=== PATIENT | female | born 1955 | race Caucasian/White ===

== ENCOUNTER → 2022-09-20 13:26 | Outpatient (BNVA) | payer MEDICARE, MEDICAID, SELFPAY | PROVIDERS: PCP Internal Medicine; Visit Provider Nurse Practitioner Family | DX: M47.816 Spondylosis without myelopathy or radiculopathy, lumbar region (principal); M54.2 Cervicalgia; G89.4 Chronic pain syndrome; M62.838 Other muscle spasm | CPT/HCPCS: 99202 ==

== ENCOUNTER 2022-09-26 10:34 | Outpatient (REF) | payer MEDICARE, MEDICAID, SELFPAY ==
--- NOTE | ~2022-09-26 | XR_ITS ---
EXAMINATION: XR CERVICAL SPINE CLINICAL INFORMATION: Chronic pain syndrome COMPARISON: None available. TECHNIQUE: 3 views of the cervical spine were obtained. FINDINGS: Bone alignment is normal. No fracture or dislocation. Degenerative spondylosis and degenerative disc disease at C4-C5 C5-C6 and C6-C7. prevertebral soft tissues are normal. XR/XR cervical spine 3V IMPRESSION: Multilevel degenerative changes.
--- NOTE | ~2022-09-26 | XR_ITS ---
EXAMINATION: XR LUMBOSACRAL SPINE WITH OBLIQUES CLINICAL INFORMATION: Pain COMPARISON: None available. TECHNIQUE: 7 views of the spine including bilateral oblique and flexion and extension views FINDINGS: No fracture or dislocation. There is mild anterior subluxation of L4 with respect L5 measuring 3 mm flexion. Bone alignment is otherwise normal. Degenerative disc disease at L4-L5. Lower lumbar spine facet arthritis. No pars defect. XR/XR lumbar spine 6V w bending IMPRESSION: Degenerative disc disease at L4-L5 and lower lumbar spine facet arthritis. Mild 3 mm anterior subluxation of L4 with respect L5 on flexion.
== END 2022-09-26 10:35 | disposition home or self-care (01) ==
LOC: HO.XRAY 10:34
PROVIDERS: Visit Provider Nurse Practitioner Family
DX: G89.4 Chronic pain syndrome (principal); M47.816 Spondylosis without myelopathy or radiculopathy, lumbar region; M54.2 Cervicalgia
CPT/HCPCS: 72040; 72114

== ENCOUNTER 2022-12-23 08:42 | Outpatient (AMB) | payer OTHER, MEDICAID, SELFPAY ==
[2022-12-23 09:04] VITALS: BP 138/74; PULSE 79; RESP 12; TEMP 36.3; O2SAT 98; BMI 32.3
--- NOTE | 2022-12-23 09:04 | MHC.OFFWIV ---
Intake Vital Signs 12/23/22 09:04 Height 5 ft 4 in Weight 188 lb BMI 32.3 BP 138/74 Blood Pressure Location Lt brachial Position Sitting Respiration 12 Pulse 79 Pulse Source Pulse Oximeter Temp 97.4 F Temp Source Temporal Artery Scan Pulse Oximetry (%) 98 Oxygen Delivery Method Room Air Intake Visit Reasons: splinter, left finger Intake Note: Patient states that splnter has been i finger since last Friday. Patient states that she attempted to take it out and puss came out and now patient is unsure if splinter is still in there. Patient Tobacco Use Status: Former Tobacco user Crime Prevention Worker Required: Yes Crime Prevention Worker Name: Linette (daughter) Accompanied by: Daughter Allergies iopamidol [From [id number]] Allergy (Mild, Verified 12/23/22 09:09) HIVE penicillin V Allergy (Unknown, Verified 12/23/22 09:09) Rash Do you need a note to return to daycare/school/sports/work: No HPI splinter, left finger HPI Details 67 y/o female presents with complaints of a splinter on her L finger. She reports someone had already taken out the splinter. She does not remember if she had a tetanus shot the last few years. [facility] Medical History Anxiety and depression Back pain Bilateral hydronephrosis Bilateral sacroiliitis Chronic back pain Constipation Fatty liver Gastritis Hostility Hyperglycemia Hypertension Lumbar disc herniation Memory problem Neck pain Prediabetes Tachycardia Social History Patient Tobacco Use Status: Former Tobacco user Review of Systems Const Denies chills, Denies fatigue, Denies fever(s), Denies headache(s) and Denies weakness ENT Denies dizziness and Denies headache(s) Card Denies dyspnea Resp Denies cough, Denies dyspnea, Denies wheezing and Denies other (shortness of breath) Musc Denies numbness and Denies tingling Neuro Denies dizziness, Denies headache(s), Denies numbness, Denies tingling and Denies weakness Psych Denies anxiety and Denies depression Endo Denies fatigue Aller/Immun Denies wheezing Physical Exam Vital Signs: Last Vital Signs Temp 97.4 F 12/23/22 09:04 Pulse 79 12/23/22 09:04 Resp 12 12/23/22 09:04 BP 138/74 12/23/22 09:04 Pulse Ox 98 12/23/22 09:04 Oxygen Delivery Method Room Air 12/23/22 09:04 BMI result Body Mass Index 32.3 Const General: well developed; No acute distress Nutritional Appearance: well nourished Orientation/consciousness: patient oriented x3 HEENT Head: Yes normocephalic and Yes atraumatic Eyes General: appearance normal, both eyes and all related structures Pupils: Equal, round and reactive pupils present EOM: EOMs intact bilaterally Resp Effort & Inspection: normal respiratory effort Skin Other: Wound at base of her L 3rd finger with a little bit of redness. Neuro General: patient oriented x3 and gait normal Cranial nerves: Yes Equal, round and reactive pupils present Psych Affect: normal affect Assessment & Plan Assessment & Plan (1) Wound of skin: Code(s): T14.8XXA - Other injury of unspecified body region, initial encounter Plan: Wound at base of left 3rd finger. No foreign body observed in wound Patient is diabetic however-will give her a course of cephalexin. Patient does not know when her last tetanus shot is so will give her this is well She can perform warm saltwater soaks twice a day until healed. Caution with temperature as she has diabetes. Advised her to watch for increasing redness swelling streaking or drainage - call or return to office for these Orders: Orders TDaP Immunization Today T14.8XXA - Other injury of unspecified body region, initial encounter, Z23 - Encounter for immunization Medications: New Boostrix Tdap (diphth,pertus(acell),tetanus) 0.5 mL IM ONCE 0.5 mL 0RF NS T14.8XXA - Other injury of unspecified body region, initial encounter, Z23 - Encounter for immunization Coding Level of Care Code Est Pt Level 3 (83035) Diagnoses Wound of skin T14.8XXA
== END 2022-12-23 10:08 | disposition home or self-care (01) ==
PROVIDERS: PCP Internal Medicine; Visit Provider Family Medicine
DX: S60.455A Superficial foreign body of left ring finger, initial encounter (principal); L03.012 Cellulitis of left finger
CPT/HCPCS: 90471; 90715; 99213

== ENCOUNTER 2023-09-30 14:17 | Outpatient (AMB) | payer MEDICAID, SELFPAY ==
--- NOTE | 2023-09-30 14:19 | A.OFFVIS_ITS ---
Vital Signs 3 09/30/23 14:37 Height 5 ft 4 in Weight 186 lb 4 oz BMI 32.0 BP 136/86 Blood Pressure Location Lt brachial Position Sitting Respiration 14 Pulse 96 Pulse Source Pulse Oximeter Pulse Oximetry (%) 96 Oxygen Delivery Method Room Air Intake Visit Reasons: X-Ray Results Discussion Intake Note: Pain 07/05 Life Assurance Representative Required: Yes Life Assurance Representative Language: Credit Clerk Name: Daughter Accompanied by: Daughter Allergies iopamidol [From Isovue-[id number]] Allergy (Mild, Verified 09/30/23 14:40) HIVE penicillin V Allergy (Unknown, Verified 09/30/23 14:40) Rash HPI Comments Details: Patient presents today to discuss recent cervical and lumbar spine x-ray results that were completed in 2022. She was initially seen in Spring 2022 and was recommended to start with physical therapy. Patient reports she has never received appointment for PT and continues to endorse neck pain with extension and lower back pain with prolonged walking and forward flexion. She is interested to start PT. Patient is hesitant towards interventional treatments as previous neck and back injections were not effective. Patient has been taking Tylenol and muscle relaxant for her pain with mild relief. She avoids NSAIDs due to recent gastritis. Most recent A1C 5.3. Denies any recent cough, cold, infection, fever, weakness, numbness, tingling, burning, any significant changes in her medical history, medications or recent hospitalizations. PRIOR: Patient is a 67 years old Serbian speaking female presents today for initial evaluation of worsening chronic neck and back pain. She reports history of a falling from hammock on cemented floor about 5 years ago. Patient reports she has been followed by [facility] office and received multiple cervical and lumbar injections which provided her on average 2-7 days of pain relief. Her pain is worse with movements of upper and lower spine with extension, during positions changes and worse at nighttime. Her back is mostly axial without radiation to lower extremities, weakness, numbness or tingling. Patient reports she did not make any gains regarding pain or function with physical therapy, conservative measures or spine injections. Patient is hesitant towards interventional treatments and was hopeful to pursue medical management through our office. I have informed this patient that we do not offer opioid prescribing at this time. I will submit request to her [facility] pain management provider for all previous injections and procedures. We briefly discussed longer term pain relief with neuromodulation and RFA procedures. Patient denies any fever, weight loss, abdominal or groin pain, weakness, bladder or bowel incontinence or saddle anesthesia. Location Whole back neck to lower back Duration Chronic for many years, worse since fall in 2018 Characteristics of symptom or complaint Aching, shooting, spasming, stabbing, sharp, squeezing, tiring Aggravating or associated factors Movements, changing positions, nighttime, prolonged sitting Relieving factors Ibuprofen, Tylenol, lidocaine patches Treatment PT in 2021, cervical and lumbar injections ON LICENSE OF [facility] Medical History Hyperglycemia Constipation Hostility Tachycardia Neck pain Lumbar disc herniation Gastritis Fatty liver Bilateral hydronephrosis Bilateral sacroiliitis Prediabetes Hypertension Chronic back pain Back pain Anxiety and depression Memory problem Social History Patient Tobacco Use Status: Former Tobacco user Review of Systems Const All systems reviewed & are unremarkable except as noted in HPI and below Physical Exam Vital Signs: Last Vital Signs Pulse 96 09/30/23 14:37 Resp 14 09/30/23 14:37 BP 136/86 09/30/23 14:37 Pulse Ox 96 09/30/23 14:37 Oxygen Delivery Method Room Air 09/30/23 14:37 BMI result Body Mass Index 32.0 General: Appears afebrile. Alert and oriented. Mood and affect appropriate. Follows and participates in conversation appropriately. Respiratory effort is unlabored. No cough. No nasal discharge. Able to transition from sit to stand unassisted. Ambulates with bilaterally normal heel strike and toe off. Neck Neck: Yes no lymphadenopathy, Yes supple, No anterior neck swelling, No torticollis, No tracheal deviation, Yes no JVD and Yes prominent dorsocervical fat pad Back/Spine/Pelvis Other: Limited lumbar ROM due to mild pain. No limping. Can flex forward to 70-80 degrees and extend to 5-10 degrees before experiencing lumbar pain. Increased pain with extension, forward flexion and facet loading bilaterally. Demonstrates 5/5 strength of quadriceps bilaterally as well as flexion/dorsiflexion of bilateral feet against resistance. 2+ pedal pulses bilaterally. Straight leg rise with dorsiflexion negative bilaterally. +1 patellar and achilles reflexes bilaterally. Polly sign and Bienvenido?s tests are negative bilaterally. No groin pain with I/E hip rotations. Valsalva maneuver negative. Back: back tenderness Cervical Spine: normal cervical lordosis, cervical muscular tenderness, pain with cervical ROM, No Cervical spine scars present, cervical spasm, No Cervical spine tenderness and No step off deformity Thoracic/Lumbar Spine: thoracic and lumbar spine normal to inspection, Lasegue's sign negative, straight leg raise negative bilaterally, pain with thoraco-lumbar ROM, paraspinal muscle tenderness, thoraco-lumbar ROM limited, thoracic spinal tenderness and lumbar spinal tenderness at L4 and at L5 Pelvis: no buttock tenderness Sacroiliac joints: bilaterally nontender Results Reviewed Results Reviewed: XR LUMBOSACRAL SPINE WITH OBLIQUES 09/26/22 FINDINGS: No fracture or dislocation. There is mild anterior subluxation of L4 with respect L5 measuring 3 mm flexion. Bone alignment is otherwise normal. Degenerative disc disease at L4-L5. Lower lumbar spine facet arthritis. No pars defect. IMPRESSION: Degenerative disc disease at L4-L5 and lower lumbar spine facet arthritis. Mild 3 mm anterior subluxation of L4 with respect L5 on flexion. XR CERVICAL SPINE 09/26/22 FINDINGS: Bone alignment is normal. No fracture or dislocation. Degenerative spondylosis and degenerative disc disease at C4-C5 C5-C6 and C6-C7. prevertebral soft tissues are normal. IMPRESSION: Multilevel degenerative changes. Assessment & Plan Assessment & Plan (1) Lumbar spondylosis: Code(s): M47.816 - Spondylosis without myelopathy or radiculopathy, lumbar region Category: Medical (2) Chronic pain syndrome: Code(s): G89.4 - Chronic pain syndrome Category: Medical (3) Muscle spasm: Code(s): M62.838 - Other muscle spasm Category: Medical (4) Lumbar degenerative disc disease: Code(s): M51.36 - Other intervertebral disc degeneration, lumbar region Category: Medical (5) Cervical spondylosis: Code(s): M47.812 - Spondylosis without myelopathy or radiculopathy, cervical region Category: Medical (6) Neck pain: Code(s): M54.2 - Cervicalgia Category: Medical Plan Lumbar and cervical spine xrays from 09/2022 reviewed with patient and family again today, previously these results were called to patient on 10/09/22. We will update spine imaging to follow up on previous findings, including cervical and lumbar DDD and anterior subluxation of L4 with respect L5 on flexion. We reviewed diagnostic vs therapeutic injections, neuromodulation with SPRINT device, RFA, BVN ablation procedures. Patient is hesitant towards interventional treatments at this time. Her pain is minimal today, rated at 2/10. She is interested to start formal PT and establish HEP. Script to PT at [facility] location and contact information provided to patient and family. Medical release sent to PCP office for most recent lab work prior to considering medication for symptomatic pain relief. All questions and concerns have been answered and patient agreed with the plan. Follow up for xray results/records review and sooner if needed. Orders: Orders 2 PT Evaluation and Treatment Today G89.4 - Chronic pain syndrome, M47.812 - Spondylosis without myelopathy or radiculopathy, cervical region, M47.816 - Spondylosis without myelopathy or radiculopathy, lumbar region, M51.36 - Other intervertebral disc degeneration, lumbar region, M62.838 - Other muscle spasm XR lumbar spine 4V min Today M47.816 - Spondylosis without myelopathy or radiculopathy, lumbar region, M51.36 - Other intervertebral disc degeneration, lumbar region XR cervical spine 3V Today M47.812 - Spondylosis without myelopathy or radiculopathy, cervical region, M62.838 - Other muscle spasm Medications: Discontinued 2 methocarbamol Discontinued Reason: Patient Completed Course 750 mg PO Q8H 30 days 90 tabs 0RF muscle spasms G89.4 - Chronic pain syndrome, M62.838 - Other muscle spasm Coding Level of Care Code Est Pt Level 4 (98354) Diagnoses Lumbar spondylosis M47.816 Chronic pain syndrome G89.4 Muscle spasm M62.838 Lumbar degenerative disc disease M51.36 Cervical spondylosis M47.812 Neck pain M54.2
[2023-09-30 14:37] VITALS: BP 136/86; PULSE 96; RESP 14; O2SAT 96; BMI 32.0
== END 2023-09-30 14:53 | disposition home or self-care (01) ==
PROVIDERS: PCP Internal Medicine; Visit Provider Nurse Practitioner Family
DX: M47.816 Spondylosis without myelopathy or radiculopathy, lumbar region (principal); G89.4 Chronic pain syndrome; M62.838 Other muscle spasm; M51.36 Other intervertebral disc degeneration, lumbar region; M47.812 Spondylosis without myelopathy or radiculopathy, cervical region; M54.2 Cervicalgia
CPT/HCPCS: 99214

== ENCOUNTER → 2023-09-30 14:17 | Outpatient (BNVA) | payer MEDICAID, SELFPAY | PROVIDERS: PCP Internal Medicine; Visit Provider Nurse Practitioner Family | DX: G89.4 Chronic pain syndrome (principal); M47.816 Spondylosis without myelopathy or radiculopathy, lumbar region; M62.838 Other muscle spasm; M51.36 Other intervertebral disc degeneration, lumbar region; M47.812 Spondylosis without myelopathy or radiculopathy, cervical region; M54.2 Cervicalgia | CPT/HCPCS: 99212 ==

== ENCOUNTER 2023-10-06 09:21 | Outpatient (REF) | payer MEDICARE, OTHER, SELFPAY ==
--- NOTE | ~2023-10-06 | XR_ITS ---
EXAMINATION: XR CERVICAL SPINE CLINICAL INFORMATION: Cervical spondylosis without myelopathy or radiculopathy COMPARISON: 09/26/2022 TECHNIQUE: AP, lateral and open-mouth views. FINDINGS: There is limited evaluation of cervical spine due to highly positioned shoulders. There is straightening of cervical lordosis with narrowing of C4-C5, C5-C6 and C6-C7 intervertebral disc spaces. There is uncovertebral osteophytosis. Odontoid view revealed no asymmetry. Soft tissues are unremarkable XR/XR cervical spine 3V IMPRESSION: Multilevel degenerative changes in cervical spine.
--- NOTE | ~2023-10-06 | XR_ITS ---
EXAMINATION: XR LUMBOSACRAL SPINE WITH OBLIQUES CLINICAL INFORMATION: Pain in lumbar region mass status post fall 5 years ago COMPARISON: 09/26/2022 TECHNIQUE: AP, lateral, oblique views and lateral coned view of lower lumbar spine. FINDINGS: There is loss of lumbar lordosis with narrowing cough L4-L5 intervertebral disc space and mild facet arthropathy. There is no spondylolysis or listhesis. Pedicles are preserved. Sacroiliac joints are unremarkable. Soft tissues are normal. XR/XR lumbar spine 4V min IMPRESSION: Mild degenerative changes and straightening of lumbar lordosis
== END 2023-10-06 09:22 | disposition home or self-care (01) ==
LOC: HO.XRAY 09:21
PROVIDERS: PCP Internal Medicine; Visit Provider Nurse Practitioner Family
DX: M51.36 Other intervertebral disc degeneration, lumbar region (principal); M47.816 Spondylosis without myelopathy or radiculopathy, lumbar region; M47.812 Spondylosis without myelopathy or radiculopathy, cervical region; M62.838 Other muscle spasm
CPT/HCPCS: 72040; 72110

== ENCOUNTER 2023-10-23 14:46 | Outpatient (AMB) | payer MEDICARE, MEDICAID, SELFPAY ==
--- NOTE | 2023-10-23 14:49 | A.OFFVIS_ITS ---
Vital Signs 10/23/23 14:53 Height 5 ft 4 in Weight 180 lb BMI 30.9 BP 143/65 H Blood Pressure Location Lt brachial Position Sitting Pulse 68 Pulse Source Pulse Oximeter Pulse Oximetry (%) 98 Oxygen Delivery Method Room Air Intake Visit Reasons: X-RAY FOLLOW UP Intake Note: Pain today 3/10 while sitting. 7/10 with movement Nutrition Services Aide Required: Yes Nutrition Services Aide Language: Training And Development Director Name: Oleg #[id number] Accompanied by: self Allergies iopamidol [From Isovue-[email or web address]] Allergy (Mild, Verified 10/23/23 14:52) HIVE penicillin V Allergy (Unknown, Verified 10/23/23 14:52) Rash HPI Comments Details: Patient presents today to discuss recent cervical and lumbar x-ray results. Denies any recent cough, cold, infection, fever, any significant changes in her medical history, medications or recent hospitalizations. PRIOR: Patient presents today to discuss recent cervical and lumbar spine x-ray results that were completed in 2022. She was initially seen in Spring 2022 and was recommended to start with physical therapy. Patient reports she has never received appointment for PT and continues to endorse neck pain with extension and lower back pain with prolonged walking and forward flexion. She is interested to start PT. Patient is hesitant towards interventional treatments as previous neck and back injections were not effective. Patient has been taking Tylenol and muscle relaxant for her pain with mild relief. She avoids NSAIDs due to recent gastritis. Most recent A1C 5.3. Denies any recent cough, cold, infection, fever, weakness, numbness, tingling, burning, any significant changes in her medical history, medications or recent hospitalizations. PRIOR: Patient is a 67 years old Romanian speaking female presents today for initial evaluation of worsening chronic neck and back pain. She reports history of a falling from hammock on cemented floor about 5 years ago. Patient reports she has been followed by [facility] office and received multiple cervical and lumbar injections which provided her on average 2-7 days of pain relief. Her pain is worse with movements of upper and lower spine with extension, during positions changes and worse at nighttime. Her back is mostly axial without radiation to lower extremities, weakness, numbness or tingling. Patient reports she did not make any gains regarding pain or function with physical therapy, conservative measures or spine injections. Patient is hesitant towards interventional treatments and was hopeful to pursue medical management through our office. I have informed this patient that we do not offer opioid prescribing at this time. I will submit request to her [facility] pain management provider for all previous injections and procedures. We briefly discussed longer term pain relief with neuromodulation and RFA procedures. Patient denies any fever, weight loss, abdominal or groin pain, weakness, bladder or bowel incontinence or saddle anesthesia. Location Whole back neck to lower back Duration Chronic for many years, worse since fall in 2018 Characteristics of symptom or complaint Aching, shooting, spasming, stabbing, sharp, squeezing, tiring Aggravating or associated factors Movements, changing positions, nighttime, prolonged sitting Relieving factors Ibuprofen, Tylenol, lidocaine patches Treatment PT in 2021, cervical and lumbar injections PFSH Medical History Hyperglycemia Constipation Hostility Tachycardia Neck pain Lumbar disc herniation Gastritis Fatty liver Bilateral hydronephrosis Bilateral sacroiliitis Prediabetes Hypertension Chronic back pain Back pain Anxiety and depression Memory problem Social History Patient Tobacco Use Status: Former Tobacco user Review of Systems Const All systems reviewed & are unremarkable except as noted in HPI and below Physical Exam General: Appears afebrile. Alert and oriented. Mood and affect appropriate. Follows and participates in conversation appropriately. Respiratory effort is unlabored. No cough. No nasal discharge. Able to transition from sit to stand unassisted. Ambulates with bilaterally normal heel strike and toe off. Neck Neck: Yes full ROM, Yes no lymphadenopathy, Yes supple, No anterior neck swelling, No torticollis, No tracheal deviation, Yes no JVD and Yes prominent dorsocervical fat pad Back/Spine/Pelvis Other: Limited lumbar ROM due to mild pain. Increased pain with extension, forward flexion and facet loading bilaterally. Demonstrates 5/5 strength of quadriceps bilaterally as well as flexion/dorsiflexion of bilateral feet against resistance. 2+ pedal pulses bilaterally. Straight leg rise with dorsiflexion negative bilaterally. +1 patellar and achilles reflexes bilaterally. Polly sign and Bienvenido?s tests are negative bilaterally. No groin pain with I/E hip rotations. Valsalva maneuver negative. Cervical Spine: normal cervical lordosis, cervical ROM normal, cervical muscular tenderness, pain with cervical ROM, No Cervical spine scars present, cervical spasm, No Cervical spine tenderness and No step off deformity Thoracic/Lumbar Spine: thoracic and lumbar spine normal to inspection, No Thoracic/lumbar spine scar(s), Lasegue's sign negative, straight leg raise negative bilaterally, pain with thoraco-lumbar ROM, paraspinal muscle tenderness, thoraco-lumbar ROM limited, thoracic spinal tenderness and lumbar spinal tenderness at L4 and at L5 Pelvis: no buttock tenderness Sacroiliac joints: bilaterally nontender Results Reviewed Results Reviewed: XR LUMBOSACRAL SPINE WITH OBLIQUES 10/06/23 CLINICAL INFORMATION: Pain in lumbar region mass status post fall 5 years ago COMPARISON: 09/26/2022 FINDINGS: There is loss of lumbar lordosis with narrowing cough L4-L5 intervertebral disc space and mild facet arthropathy. There is no spondylolysis or listhesis. Pedicles are preserved. Sacroiliac joints are unremarkable. Soft tissues are normal. IMPRESSION: Mild degenerative changes and straightening of lumbar lordosis XR CERVICAL SPINE 10/06/23 CLINICAL INFORMATION: Cervical spondylosis without myelopathy or radiculopathy COMPARISON: 09/26/2022 FINDINGS: There is limited evaluation of cervical spine due to highly positioned shoulders. There is straightening of cervical lordosis with narrowing of C4-C5, C5-C6 and C6-C7 intervertebral disc spaces. There is uncovertebral osteophytosis. Odontoid view revealed no asymmetry. Soft tissues are unremarkable IMPRESSION: Multilevel degenerative changes in cervical spine. Assessment & Plan Assessment & Plan (1) Lumbar spondylosis: Code(s): M47.816 - Spondylosis without myelopathy or radiculopathy, lumbar region Category: Medical (2) Muscle spasm: Code(s): M62.838 - Other muscle spasm Category: Medical (3) Cervical spondylosis: Code(s): M47.812 - Spondylosis without myelopathy or radiculopathy, cervical region Category: Medical (4) Chronic pain syndrome: Code(s): G89.4 - Chronic pain syndrome Category: Medical (5) Lumbar degenerative disc disease: Code(s): M51.36 - Other intervertebral disc degeneration, lumbar region Category: Medical (6) Neck pain: Code(s): M54.2 - Cervicalgia Category: Medical Plan Lumbar and cervical spine xrays were reviewed with patient today with assistance of transportation escort. Patient was recommended to start physical therapy and establish home exercise program. Patient reports she has not received call from PT office yet, we provided patient with PT contact information again. Discussed interventional treatments for axial cervical and low back pain, including diagnostic vs therapeutic injections, Sprint PNS trial, RFA procedures. Script provided for tizanidine for neck and back muscle spasms. Side effects and precautions discussed with patient. All questions and concerns have been answered and patient agreed with the plan. Follow up after PT and sooner as needed. Medications: New tizanidine 2 mg PO TID 30 days PRN 90 tabs 0RF muscle spasticity M47.812 - Spondylosis without myelopathy or radiculopathy, cervical region, M47.816 - Spondylosis without myelopathy or radiculopathy, lumbar region, M62.838 - Other muscle spasm Coding Level of Care Code Est Pt Level 4 (91319) Diagnoses Lumbar spondylosis M47.816 Muscle spasm M62.838 Cervical spondylosis M47.812 Chronic pain syndrome G89.4 Lumbar degenerative disc disease M51.36 Neck pain M54.2
[2023-10-23 14:53] VITALS: BP 143/65; PULSE 68; O2SAT 98; BMI 30.9
== END 2023-10-23 15:21 | disposition home or self-care (01) ==
PROVIDERS: PCP Internal Medicine; Visit Provider Nurse Practitioner Family
DX: M47.816 Spondylosis without myelopathy or radiculopathy, lumbar region (principal); M62.838 Other muscle spasm; M47.812 Spondylosis without myelopathy or radiculopathy, cervical region; G89.4 Chronic pain syndrome; M51.36 Other intervertebral disc degeneration, lumbar region; M54.2 Cervicalgia
CPT/HCPCS: 99214

== ENCOUNTER → 2023-10-23 14:46 | Outpatient (BNVA) | payer MEDICARE, MEDICAID, SELFPAY | PROVIDERS: PCP Internal Medicine; Visit Provider Nurse Practitioner Family | DX: M47.816 Spondylosis without myelopathy or radiculopathy, lumbar region (principal); M62.838 Other muscle spasm; M47.812 Spondylosis without myelopathy or radiculopathy, cervical region; M51.36 Other intervertebral disc degeneration, lumbar region; M54.2 Cervicalgia; G89.4 Chronic pain syndrome | CPT/HCPCS: 99212 ==

== ENCOUNTER 2025-02-08 14:25 | Outpatient (AMB) | payer MEDICARE, MEDICAID, SELFPAY ==
--- NOTE | 2025-02-08 14:29 | MHC.PC.OV ---
Vital Signs 02/08/25 14:32 BP 116/80 Blood Pressure Location Lt brachial Position Sitting Respiration 14 Pulse 82 Pulse Source Pulse Oximeter Temp 98.2 F Temp Source Oral Pulse Oximetry (%) 95 Oxygen Delivery Method Room Air Intake Visit Reasons: jarred from eliza Allergies iopamidol (From [id number]) Allergy (Mild, Verified 10/23/23 14:52) HIVE penicillin V Allergy (Unknown, Verified 10/23/23 14:52) Rash Tobacco use date assessed: 02/08/25 Fall risk assessment: No Falls in past year Last assessed Fall Risk: 02/08/25 Dental Screening Dental Screen Date: 02/08/25 Did you have a dental visit in the last 12 months?: No Did you have a dental problem in the last 6 months where you did not have access to dental care?: No Was dental information given to patient?: Patient declined (no teeth) HPI HPI Comments History of Present Illness Details The patient is a 69 year old Lao speaking female with past medical history of neck, lumbar pain, hypertension, prediabetes, anxiety, memory issues, MARVIN, insomnia presenting to [facility] care. Transfer from [facility]-Dr Hood Last visit telehealth 09/07/2024. CV: On atenolol, toprol 12.5mg daily GI: On PPI MSK: Chronic neck and low back pain. Previously seeing pain management but pain was no less with treatments so she has not been following BH: on lorazepam 1mg bedtime as needed, only as needed Colonoscopy: [facility]-within 10 years Mammo: Declines further mammogram ROS CONSTITUTIONAL: Denies weight loss, fever and chills. HEENT: Denies changes in vision and hearing. RESPIRATORY: Denies SOB and cough. CV: Denies palpitations and CP GI: Denies abdominal pain, nausea, vomiting and diarrhea. : Denies dysuria and urinary frequency. MSK: Denies new myalgia and joint pain. SKIN: Denies rash and pruritus. NEUROLOGICAL: Denies headache PSYCHIATRIC: Denies recent changes in mood. PHYSICAL EXAM: GENERAL: Alert and oriented x 3. NAD EYES: EOMI. Anicteric. HENT: Moist mucous membranes. No scleral icterus. No cervical lymphadenopathy. LUNGS: Clear to auscultation bilaterally. CARDIOVASCULAR: Regular rate and rhythm. No murmur. No JVD. ABDOMEN: Soft, non-tender +bs EXTREMITIES: No edema. Non-tender. SKIN: No rashes or lesions. Warm. NEUROLOGIC: No focal neurological deficits. CN II-XII grossly intact PSYCHIATRIC: Cooperative. Appropriate mood and affect FOR[facility]LY [facility], [facility] Medical History Hyperglycemia Constipation Hostility Tachycardia Neck pain Lumbar disc herniation Gastritis Fatty liver Bilateral hydronephrosis Bilateral sacroiliitis Prediabetes Hypertension Chronic back pain Back pain Anxiety and depression Memory problem Social History Housing: House Patient Tobacco Use Status: Former Tobacco user (quit 25 years ago) Cigarette Packs Per Day: 0.25 Years Smoked: 10 e-Cigarette/Vaping Use: Never Used Second Hand Smoke Exposure: No service: No Current occupational status: retired Cognitive needs: No Hearing needs: No Vision needs: No Questionnaire PHQ-9 Over the last 2 weeks, how often have you been bothered by any of the following problems? 1. Little interest or pleasure in doing things: not at all 2. Feeling down, depressed, or hopeless: not at all 3. Trouble falling or staying asleep, or sleeping too much: several days 4. Feeling tired or having little energy: several days 5. Poor appetite or overeating: not at all 6. Feeling bad about yourself - or that you are a failure or have let yourself or your family down: not at all 7. Trouble concentrating on things, such as reading the newspaper or watching television: not at all 8. Moving or speaking so slowly that other people could have noticed. Or the opposite - being so fidgety or restless that you have been moving around a lot more than usual: not at all 9. Thoughts that you would be better off or of hurting yourself in some way: not at all Total score: 2 Depression Screening Interpretation: Negative Depression Screening Done: Yes 67362 - PHQ-9 Billing: Yes Source: Developed by Drs. Jaime Hitchcock, Susu Lim, Mukund Wagoner and colleagues, with an educational catherine from [employer]. Thrive Questionnaire I am a: Patient What is your living situation today?: I have a steady place to live Within the past 12 months, did the food you bought not last and you didn't have the money to get more?: Never true Within the past 12 months, did you worry whether your food would run out before you got money to buy more?: Never true Do you have trouble paying for medicines?: No Do you have trouble getting transportation to medical appointments?: No Do you have trouble paying your heating and electricity bill?: No Do you have trouble taking care of your child, family member or friend?: No Do you have trouble with day-to-day activities such as bathing, preparing meals, shopping, managing finances, etc.?: No Are you currently unemployed and looking for a job?: No Are you interested in more education?: No Please select the resources that you would like help with: None Currently or been in a relationship where the following occur: No concerns reported THRIVE Score: 0 AUDIT C Alcohol Use Questionnaire (AUDIT-C) 1. How often do you have a drink containing alcohol?: Never Total Score: 0 KARIE-7 AMB Questionnaire KARIE-7 Feeling nervous, anxious, or on edge: 0 = Not at all Not being able to stop or control worryin = Not at all Worrying too much about different things: 0 = Not at all Trouble relaxin = Not at all Being so restless that it is hard to sit still: 0 = Not at all Becoming easily annoyed or irritable: 0 = Not at all Feeling afraid as if something awful might happen: 0 = Not at all Total KARIE-7 score (0-4 normal; 5-9 mild; 10-14 moderate; 15-21 severe): 0 Source: Developed by Drs. Jaime Hitchcock, Susu Lim, Mukund Wagoner and colleagues, with an educational catherine from [employer]. Physical exam (Primary Care) Vital Signs: Last Vital Signs Temp 98.2 F 02/08/25 14:32 Pulse 82 02/08/25 14:32 Resp 14 02/08/25 14:32 BP 116/80 02/08/25 14:32 Pulse Ox 95 02/08/25 14:32 Oxygen Delivery Method Room Air 02/08/25 14:32 Tobacco/Smoking Status: Tobacco use Status Tobacco use date assessed 02/08/25 02/08/25 14:36 Patient Tobacco Use Status Former Tobacco user (quit 02/08/25 14:36 years ago) e-Cigarette/Vaping Use Never Used 02/08/25 14:36 PHQ-9: PHQ-9 Score PHQ-9: Total score 2 02/08/25 14:52 Depression Screening Interpretation: Negative Currently or been in a relationship where the following occur: No concerns reported Coding Level of Care Code New Pt Level 4 (69964) Complex EM visit Add On G2211 Diagnoses Prediabetes R73.03 Primary hypertension I10 Hypertension type: primary hypertension Anxiety and depression F41.9; F32.A Degeneration of intervertebral disc of lumbar region, unspecified whether pain present M51.369 Disc-related pain type: unspecified whether pain present Additional Codes PHQ-9 - 34808 - PHQ-9 Billing: Yes ([id number]) Assessment & Plan Assessment & Plan (1) Prediabetes: Code(s): R73.03 - Prediabetes Category: Medical (2) Hypertension: Code(s): I10 - Essential (primary) hypertension Category: Medical Qualifiers: Hypertension type: primary hypertension Qualified Code(s): I10 - Essential (primary) hypertension (3) Anxiety and depression: Code(s): F41.9 - Anxiety disorder, unspecified; F32.A - Depression, unspecified Category: Medical (4) Lumbar degenerative disc disease: Code(s): M51.36 - Other intervertebral disc degeneration, lumbar region Category: Medical Qualifiers: Disc-related pain type: unspecified whether pain present Qualified Code(s): M51.369 - Other intervertebral disc degeneration, lumbar region without mention of lumbar back pain or lower extremity pain Plan 69 year old to establish care past medical, surgical, social reviewed HTN-well controlled Prediabetes-check a1c. Anxiety well controlled on prn lorazepam Declines mammo. reports colonoscopy utd Orders: Orders Complete Blood Count Auto Diff Today F32.A - Depression, unspecified, F41.9 - Anxiety disorder, unspecified, I10 - Essential (primary) hypertension, M51.36 - Other intervertebral disc degeneration, lumbar region, R73.03 - Prediabetes Hemoglobin A1c Today F32.A - Depression, unspecified, F41.9 - Anxiety disorder, unspecified, I10 - Essential (primary) hypertension, M51.36 - Other intervertebral disc degeneration, lumbar region, R73.03 - Prediabetes TSH reflex Free T4 Today F32.A - Depression, unspecified, F41.9 - Anxiety disorder, unspecified, I10 - Essential (primary) hypertension, M51.36 - Other intervertebral disc degeneration, lumbar region, R73.03 - Prediabetes Comprehensive Met. Panel Today F32.A - Depression, unspecified, F41.9 - Anxiety disorder, unspecified, I10 - Essential (primary) hypertension, M51.36 - Other intervertebral disc degeneration, lumbar region, R73.03 - Prediabetes Lipid Panel Today F32.A - Depression, unspecified, F41.9 - Anxiety disorder, unspecified, I10 - Essential (primary) hypertension, M51.36 - Other intervertebral disc degeneration, lumbar region, R73.03 - Prediabetes
[2025-02-08 14:32] VITALS: BP 116/80; PULSE 82; RESP 14; TEMP 36.8; O2SAT 95
== END 2025-02-08 15:03 | disposition home or self-care (01) ==
LOC: HO.HMCFM 14:26
PROVIDERS: PCP Internal Medicine; Visit Provider Internal Medicine
DX: R73.03 Prediabetes (principal); I10 Essential (primary) hypertension; F41.9 Anxiety disorder, unspecified; F32.A Depression, unspecified; M51.369 Other intervertebral disc degeneration, lumbar region without mention of lumbar back pain or lower extremity pain

== ENCOUNTER → 2025-02-08 14:25 | Outpatient (BNVA) | payer MEDICARE, MEDICAID, SELFPAY | PROVIDERS: PCP Internal Medicine; Visit Provider Internal Medicine | DX: Z76.89 Persons encountering health services in other specified circumstances (principal); R73.03 Prediabetes; I10 Essential (primary) hypertension; F41.9 Anxiety disorder, unspecified; F32.A Depression, unspecified; M51.369 Other intervertebral disc degeneration, lumbar region without mention of lumbar back pain or lower extremity pain; Z79.899 Other long term (current) drug therapy; Z13.31 Encounter for screening for depression | CPT/HCPCS: 96127; 99202 ==

== ENCOUNTER 2025-02-16 09:10 | Outpatient (REF) | payer MEDICARE, MEDICAID, SELFPAY ==
[2025-02-16 11:50] LABS: MANUAL DIFF FLAG NO
[2025-02-16 12:07] LABS: Hematocrit 40.6 % (37.0-47.0); Hemoglobin 13.5 g/dl (12.0-16.0); Imm Gran Abs Auto 0.01 X10*3/uL (0.00-0.03); Imm Gran Pct Auto 0.2 % (0.0-0.4); Lymphocytes Absolute Auto 2.2 X10*3/uL (1.2-4.9); Mean Corpuscular HGB Conc 33.3 g/dl (31.0-35.0); Mean Corpuscular Hemoglobin 31.6 pg (27.0-33.0); Mean Corpuscular Volume 95.1 fL (80.0-98.0); NRBC Abs Auto 0.000 X10*3/uL (0.0-0.012); NRBC Pct Auto 0.0 /100WBC (0.0-0.2); Platelet Count 151 X10*3/uL (160-400); Red Blood Count 4.27 X10*6/uL (4.20-5.50); White Blood Count 5.9 X10*3/uL (4.8-10.8)
[2025-02-16 12:22] LABS: Hemoglobin A1C 171.5368 umol/L; Total Hemoglobin (HGBA1C) 3571.6171 umol/L
[2025-02-16 12:51] LABS: Anion Gap 8 (12-20)
[2025-02-16 12:56] LABS: Alanine Aminotransferase 50 U/L (0-31); Albumin Level 3.7 g/dL (3.5-5.0); Alkaline Phosphatase 61 U/L (39-117); Aspartate Amino Transferase 68 U/L (5-31); Blood Urea Nitrogen 6 mg/dL (9-16); Calcium 8.9 mg/dL (8.4-10.2); Carbon Dioxide 31 mmol/L (22-29); Chloride 104 mmol/L (96-108); Cholesterol 126 mg/dL (<200); Estimated Glomerular Filt Rate > 60; HDL Cholesterol 36 mg/dL (>40); Potassium 4.3 mmol/L (3.3-5.1); Sodium 139 mmol/L (135-145); Total Protein 7.4 g/dL (6.5-8.0); Triglycerides 75 mg/dL (<150)
== END 2025-02-16 09:11 | disposition home or self-care (01) ==
LOC: HO.WFDLDS 09:10
PROVIDERS: Visit Provider Internal Medicine
DX: I10 Essential (primary) hypertension (principal); M51.369 Other intervertebral disc degeneration, lumbar region without mention of lumbar back pain or lower extremity pain; R73.03 Prediabetes; F32.A Depression, unspecified
CPT/HCPCS: 36415; 80053; 80061; 83036; 84443; 85025